=== PATIENT | male | born 1985 | race Hispanic/Latino ===

== ENCOUNTER 2018-02-27 19:51 | Inpatient (IN) | payer MEDICAID ==
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
[2018-02-27 21:00] LABS: BASO # 0.1 K/uL (0.0-0.2); BASO % 0.5 % (0.0-2.0); EOS # 0.1 K/uL (0.0-0.7); HEMOGLOBIN 11.9 g/dL (12.0-18.0); LYMPH # 1.5 K/uL (1.0-4.3); LYMPH % 13.5 % (20.0-40.0); MEAN CELL VOLUME 83.8 fL (80.0-94.0); MEAN CORPUSCULAR HGB CONC 33.4 g/dL (33.0-37.0); MEAN PLATELET VOLUME 6.9 fL (7.2-11.7); MONO # 1.3 K/uL (0.0-0.8); MONO % 11.7 % (0.0-10.0); NEUT # 8.1 K/uL (1.8-7.0); NEUT % 73.3 % (50.0-75.0); RBC 4.25 Mil/uL (4.40-5.90); RED CELL DISTRIBUTION WIDTH 13.5 % (11.5-14.5); WHITE BLOOD COUNT 11.1 K/uL (4.8-10.8)
[2018-02-27 21:11] LABS: ALB/GLOB RATIO 1.2 (1.0-2.1); ALBUMIN 3.8 g/dL (3.5-5.0); ALT/SGPT 40 U/L (21-72); AST/SGOT 38 U/L (17-59); BLOOD UREA NITROGEN 14 mg/dL (9-20); CALCIUM 8.5 mg/dl (8.6-10.4); GFR AFRICAN-AMERICAN > 60; GFR NON-AFRICAN AMERICAN > 60
[2018-02-27 21:21] LABS: SQUAMOUS EPITHIAL < 1 /hpf (0-5); URINE BACTERIA FEW (<OCC); URINE BILIRUBIN NEGATIVE (NEGATIVE); URINE BLOOD 3+ (NEGATIVE); URINE CALCIUM OXALATE CRYSTALS OCC /hpf (<OCC); URINE CLARITY Hazy (Clear); URINE COLOR Yellow (YELLOW); URINE GLUCOSE (UA) NORMAL (Normal); URINE LEUKOCYTE ESTERASE 3+ Leu/uL (Negative); URINE PROTEIN 1+ mg/dL (NEGATIVE); URINE UROBILINOGEN NORMAL mg/dL (0.2-1.0)
[2018-02-27 21:31] LABS: BARBITURATES, UR NEGATIVE (NEGATIVE); BENZODIAZEPINES, UR NEGATIVE (NEGATIVE); PHENCYCLIDINE, UR NEGATIVE (NEGATIVE)
[2018-02-27 21:53] LABS: OPIATES, UR POSITIVE (NEGATIVE)
--- NOTE | 2018-02-28 03:30 | PCM.BM ---
<Lorene Floyd M - Last Filed: 02/28/18 03:29> Treatment Plan Problems - Problems identified on initial assessmt Ineffective Coping Skills Date Initiated: 02/28/18 Time Initiated: 03:30 Assessment reference: NA Status: Active Treatment assets and liabiliti Patient Assests: ADL independent Patient Liabilities: financial problems, substance abuse - Milieu Protocol Maintain good personal hygiene: daily Encourage regular showers, daily Remind patient to perform daily oral care, other Assist patient to perform ADL's Maintain personal safety: every shift Educate patient to report safety concerns to staff, every shift Monitor environment for contraband/sharps Medication safety: Monitor for expected outcome, potential side effects: every shift, Assess barriers to learning: every shift, Assess readiness for medication education: every shift <Smooth Kimble M - Last Filed: 03/01/18 12:56> - Diagnosis (1) Opioid use disorder, severe, dependence Status: Acute Interventions: 03/01/18 12:55 * Assess 7x/week regarding severity of withdrawal * Educate regarding risks, benefits, side effects and alternatives of medications * Use Motivational Interviewing for abstinence * Use CBT for relapse prevention * Medication management for withdrawal symptoms * Encourage medication assisted treatment (2) Cocaine use disorder, severe, dependence Status: Acute Interventions: 03/01/18 12:55 * Assess 7x/week regarding severity of withdrawal * Educate regarding risks, benefits, side effects and alternatives of medications * Use Motivational Interviewing for abstinence * Use CBT for relapse prevention * Medication management for withdrawal symptoms * Encourage medication assisted treatment (3) Cannabis use disorder, severe, dependence Status: Acute Interventions: 03/01/18 12:55 * Assess 7x/week regarding severity of withdrawal * Educate regarding risks, benefits, side effects and alternatives of medications * Use Motivational Interviewing for abstinence * Use CBT for relapse prevention * Medication management for withdrawal symptoms * Encourage medication assisted treatment (4) Major depressive disorder, recurrent, unspecified Status: Acute Interventions: 03/01/18 12:56 * Assess/adjust medications daily and /or as needed * See patient on an individual basis 7x/week to assess symptoms of depression * Monitor for side effects & effectiveness of medications
--- NOTE | 2018-02-28 09:34 | RAD ---
PROCEDURE: Radiographs of the Lumbar Spine. HISTORY: injured lower back COMPARISON: No prior. FINDINGS: BONES: Normal alignment. No listhesis. No fracture. S1 incomplete closure -developmental variation DISC SPACES: Unremarkable. OTHER FINDINGS: Bilateral renal urolithiasis that on the right appears solitary 1.4 cm in size. Those on the left are more numerous and larger in size Stool retention. Mostly inferior abdomen IMPRESSION: No fracture appreciated. Bilateral urolithiasis -as above Stool retention.
--- NOTE | 2018-02-28 15:48 | PCM.PSYCH ---
Initial Psychiatric Evaluation - Initial Psychiatric Evaluation Type of Admission: Voluntary Legal Status: Capacity Chief Complaint (in patient's own words): I need help from his substance use. History of Present Illness and Precipitating Events: Patient is a 32 years old, single, unemployed, male with no previous history of depression, noncompliant with treatment for last 4 years was admitted due to withdrawing from heroin, cocaine and cannabis. Heroin: Patient started using opiate pain medications about 16 years ago. After one year off pain medication abuse, patient switched to heroin, increased gradually, currently he was using 20 bags of heroin daily, IV. His last use of heroin was yesterday. He used one bag. His longest period of abstinence was 3 years until 4 months ago when he relapsed after the of his father. He has history of one detox at [facility]. Cocaine: He started using cocaine 18 years ago, increased gradually. Currently he was using 1 g of cocaine daily, IV. Last used yesterday. Cannabis: He started using cannabis 13 years ago. Currently he was using 1 g of cannabis daily. Last used yesterday. Cigarettes: He was smoking one and a half pack of cigarettes daily. Refused to take nicotine patch. He has history of right hand, left shoulder and inguinal hernia repair. He was arrested in the past for burglary, theft and possession of drugs. He was born in [place] and has GED. 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 He is single and has no children. He lives with friend. His height is 6 feet 1 inch and weight is 135 pounds. Patient wants to go to short term rehabilitation after discharge from the hospital for follow-up care. Current Medications: Active Medications Generic Name Dose Route Start Last Admin Trade Name Freq PRN Reason Stop Dose Admin Ciprofloxacin 500 mg 02/28/18 18:00 Cipro PO 03/04/18 23:59 BID REFUGIO Protocol Clonidine HCl 0.1 mg 02/28/18 06:43 Catapres PO Q8 PRN COWS Score More or Equal to 5 Dicyclomine HCl 20 mg 02/28/18 12:41 Bentyl PO Q6 PRN Abdominal Cramps Gabapentin 400 mg 02/28/18 14:00 02/28/18 13:14 Neurontin PO 400 mg TID REFUGIO Administration Hydroxyzine HCl 25 mg 02/28/18 12:42 Atarax PO Q6 PRN Anxiety Ibuprofen 600 mg 02/28/18 06:44 Motrin Tab PO TID PRN Pain, moderate (4-7) Loperamide HCl 2 mg 02/28/18 06:43 Imodium PO Q8 PRN Diarrhea Methadone HCl 15 mg 03/01/18 10:00 Methadone PO 03/04/18 09:59 Q24H REFUGIO Taper Ondansetron HCl 4 mg 02/28/18 06:53 Zofran Tab PO Q8 PRN Nausea/Vomiting Past Psychiatric History - Past Psychiatric History Previous Treatment History: Inpatient At [facility] [place]: [facility] History of Abuse: None reported History of ETOH/Drug Use: See HPI History of Family Illness: Reported his maternal uncle has history of heroin use Pertinent Medical Hx (Current Medical&Sleep Prob, Allergies): Allergies Allergy/AdvReac Type Severity Reaction Status Date / Time No Known Allergies Allergy Verified 02/27/18 19:58 No Known Home Med 02/27/18 Hepatitis C Review of Systems - Psychiatric Psychiatric: As Per HPI, Depression Mental Status Examination - Personal Presentation Personal Presentation: Looks stated age - Affect Affect: Depressed - Motor Activity Motor Activity: Calm - Reliability in Providing Information Reliability in Providing Information: Fair - Speech Speech: Organized - Mood Mood: Depressed - Formal Thought Process Formal Thought Process: No Impairment - Hallucinations/Delusions Hallucinations: Other (None reported) Delusions: Other - Obsessions/Compulsions Obsessions: None Compulsions: None - Cognitive Functions Orientation: Person, Place, Situation, Time Sensorium: Alert Attention/Concentration: Attentive Abstract Thinking: [place] Estimate of Intelligence: Average Judgement: Intact, as evidence by: Insight regarding need for hospitalization Memory: Recent intact, as evidence by: Ability to recall events of the day, Remote intact, as evidenced by: Ability to recall historical events - Risk Risk: Withdrawal, Diminished functioning - Strength & Assets Inventory Strength & Assets Inventory: Cooperative - Limitations Limitations: Other DSM 5 DX - DSM 5 DSM 5 Diagnosis: Opiate use disorder severe Cocaine use disorder severe Cannabis use disorder severe Major depressive disorder unspecified - Recommended/Plan of Treatment Treatment Recommendations and Plan of Treatment: Patient education. Supportive therapy. CBT for relapse prevention. WI for abstinence. We'll start methadone taper for opiate withdrawal. Other when necessary medications. Projected ELOS: 4-5 days - Smoking Cessation Smoking Cessation Initiated: No Reason for not providing: Patient refused
[2018-03-01 09:56] VITALS: BP 104/70; PULSE 65; RESP 18; TEMP 98; O2SAT 98
--- NOTE | 2018-03-01 13:01 | PCM.PYCHDC ---
Mental Status Examination - Mental Status Examination Orientation: Person, Place, Situation, Time Memory: Intact Mood: Neutral Affect: Other (Appropriate) Speech: Appropriate Attention: WNL Concentration: WNL Association: WNL Fund of Knowledge: WNL Formal Thought Process: No Impairment Description of patient's judgement and insight: Poor Psychotic Thoughts and Behaviors: None Suicidal Ideation: No Current Homicidal Ideation?: No Discharge Summary - Discharge Note Reason for Hospitalization: Opiate use disorder severe Cocaine use disorder severe. Cannabis use disorder Major depressive disorder unspecified Laboratory Data: Reviewed Consultations:: List each consultation separately and include: 1. Reason for request. 2. Findings. 3. Follow-up Summary of Hospital Course include:: 1. Description of specific treatment plan utilized for patients during their course of treatmen. 2. Summarize the time- course for resolution of acute symptoms and/or regressed behaviors. 3. Describe issues identified and worked on during hospitalization. 4. Describe medication utilized. 5. Describe medical problems identified and treated. 6. Reassessment of suicide risk Summary of Hospital Course: Patient is a 32 years old, single, unemployed, male with no previous history of depression, noncompliant with treatment for last 4 years was admitted due to withdrawing from heroin, cocaine and cannabis. Heroin: Patient started using opiate pain medications about 16 years ago. After one year off pain medication abuse, patient switched to heroin, increased gradually, currently he was using 20 bags of heroin daily, IV. His last use of heroin was yesterday. He used one bag. His longest period of abstinence was 3 years until 4 months ago when he relapsed after the of his father. He has history of one detox at [facility]. Cocaine: He started using cocaine 18 years ago, increased gradually. Currently he was using 1 g of cocaine daily, IV. Last used yesterday. Cannabis: He started using cannabis 13 years ago. Currently he was using 1 g of cannabis daily. Last used yesterday. Cigarettes: He was smoking one and a half pack of cigarettes daily. Refused to take nicotine patch. He has history of right hand, left shoulder and inguinal hernia repair. He was arrested in the past for burglary, theft and possession of drugs. He was born in [place] and has GED. 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 He is single and has no children. He lives with friend. His height is 6 feet 1 inch and weight is 135 pounds. Patient wants to go to short term rehabilitation after discharge from the hospital for follow-up care. During his stay in the hospital patient was started on methadone taper for opiate withdrawal symptoms. He was also started on other when necessary medications. Patient started feeling better with the above treatment. Today patient decided to leave the hospital without finishing the detox. Patient was educated about completion of detox. Patient was also educated that in case of any adverse event including overdose, relapse, decompensation and even , patient will be responsible for his acts. Patient understood and agreed with all above but still refused to stay and left the unit AGAINST MEDICAL ADVICE. At the time of evaluation and discharge, patient was awake alert oriented 3, had no delusions, no auditory or visual hallucinations, no suicidal ideations or homicidal ideations. Patient was discharged in a stable condition. - Diagnosis (1) Opioid use disorder, severe, dependence Status: Acute (2) Cocaine use disorder, severe, dependence Status: Acute (3) Cannabis use disorder, severe, dependence Status: Acute (4) Major depressive disorder, recurrent, unspecified Status: Acute - Final Diagnosis (DSM 5) Condition upon Discharge: FAIR Disposition: AGAINST MEDICAL ADVICE Prescriptions/Medication Reconciliation: Ciprofloxacin [Cipro] 500 mg PO BID 10 Days #60 tab - Smoking Cessation Smoking Cessation Medication prescribed: No Reason for not providing: Patient refused - Antipsychotic Medications Pt discharged on 2 or more routine antipsychotic medications: No
== END 2018-03-01 11:25 | disposition left against medical advice (07) | DRG 743 ==
LOC: C.ER 19:51 → C.7D 02-28 03:00
PROVIDERS: ADMIT Psychiatry & Neurology Psychiatry; ATTEND Psychiatry & Neurology Psychiatry
PROC: HZ52ZZZ Individual Psychotherapy for Substance Abuse Treatment, Cognitive-Behavioral (ICD-10-PCS; principal; 2018-02-28)
PROC: HZ2ZZZZ Detoxification Services for Substance Abuse Treatment (ICD-10-PCS; 2018-02-28)
PROC: HZ59ZZZ Individual Psychotherapy for Substance Abuse Treatment, Supportive (ICD-10-PCS; 2018-02-28)
PROC: HZ56ZZZ Individual Psychotherapy for Substance Abuse Treatment, Psychoeducation (ICD-10-PCS; 2018-02-28)
PROC: HZ42ZZZ Group Counseling for Substance Abuse Treatment, Cognitive-Behavioral (ICD-10-PCS; 2018-02-28)
PROC: HZ46ZZZ Group Counseling for Substance Abuse Treatment, Psychoeducation (ICD-10-PCS; 2018-02-28)
PROC: GZHZZZZ Group Psychotherapy (ICD-10-PCS; 2018-02-28)
PROC: GZ58ZZZ Individual Psychotherapy, Cognitive-Behavioral (ICD-10-PCS; 2018-02-28)
PROC: GZ56ZZZ Individual Psychotherapy, Supportive (ICD-10-PCS; 2018-02-28)
DX: F11.23 Opioid dependence with withdrawal (principal); N18.9 Chronic kidney disease, unspecified; N39.0 Urinary tract infection, site not specified; F14.20 Cocaine dependence, uncomplicated; F12.20 Cannabis dependence, uncomplicated; F17.210 Nicotine dependence, cigarettes, uncomplicated; F33.9 Major depressive disorder, recurrent, unspecified; R45.851 Suicidal ideations